=== PATIENT | male | born 1940 | race Caucasian/White ===

== ENCOUNTER 2016-08-14 11:15 | Day surgery (SDC) | payer MEDICARE, OTHER ==
[~2016-08-14] VITALS: Ht 175.3 cm; Wt 65.9 kg
[~2016-08-14 11:15] MED LIST: ATIVAN0.5 MG PO; BAYER CHEWABLE81 MG PO; FLORANEX / LACT1 TAB PO; LANOXIN250 MCG PO; LEVAQUIN500 MG PO; NAMENDA5 MG PO; XANAX0.5 MG PO
[2016-08-14] MEDS ORDERED: ARICEPT5 MG PO (12:14)
[2016-08-14 12:27] LABS: ANION GAP 13.6 mmol/L (8-16); CARBON DIOXIDE 28.3 mmol/L (21.0-32.0); CREATININE - SERUM 1.5 mg/dL (0.6-1.3); POTASSIUM - SERUM 3.9 mmol/L (3.5-5.1)
[2016-08-14 12:30] VITALS: BP 142/90; Ht 175.3 cm; Wt 65.9 kg
--- NOTE | 2016-08-14 12:45 | NUR ---
1235-SPOKE WITH DR NICHOLSON AND AN ORDER RECEIVED FOR 10MG OF VALIUM PO IF PATIENT WOULD LIKE TO HAVE IT PRIOR TO PROCEDURE. EXPLAINED TO PATIENT THAT THERE IS SOMETHING TO HELP HIM RELAX IF HE WANTED IT, PT DOES NOT WANT AT THIS TIME. DAUGHTER AT BEDSIDE AND STATED UNDERSTANDING IF PT CHANGES HIS MIND THERE IS VALIUM AVAIBLE
[2016-08-14 12:49] LABS: BASOPHILS 0.4 % (0.0-2.0); EOSINOPHILS 2.7 % (0-7); HEMATOCRIT 41.9 % (42.0-54.0); HEMOGLOBIN 14.4 g/dL (13.5-17.5); IMMATURE GRANULOCYTES 0.2 % (0-5); LYMPHOCYTES 11.3 % (15-50); MCH 33.9 pg (26.0-34.0); MCHC 34.4 g/dL (31.0-37.0); MCV 98.6 fL (80.0-100.0); MEAN PLATELET VOLUME 11.6 fL (7.4-10.4); MONOCYTES 9.2 % (2-11); NEUTROPHILS 76.2 % (40-80); PLATELET COUNT 204 10x3/uL (130-400); RBC 4.25 10x6/uL (4.20-6.10); RDW 12.7 % (11.5-14.5); WBC 9.8 10x3/uL (4.8-10.8)
--- NOTE | 2016-08-14 19:03 | NUR ---
1830 IV DC WITH CATHER TIP INTACT
--- NOTE | 2016-08-21 12:04 | OP ---
PATIENT NAME: ELODIA AWAN MEDICAL RECORD: [id number] :42 LOCATION:[facility] ADMISSION DATE: SURGEON: DEAN MCGOVERN DO DATE OF OPERATION: 08/14/2016 PROCEDURE: Colonoscopy. INDICATION: Constipation and hematochezia. MEDICATIONS: Propofol 380 mg IV per anesthesia. FINDINGS: Informed consent was given. The patient was made comfortable with the above medication. After reaching an adequate level of sedation by slow IV push, the patient was placed in his left side. The endoscope was then advanced under direct visualization through the rectum to the cecum, evidenced by the cecal folds, appendiceal orifice and ileocecal valve. The prep was fair and withdrawal time was greater than 15 minutes. In total, there were 4 polyps. These ranged in size from 3 mm to 6 mm. All polyps were sessile and removed with cold forceps. There were 2 polyps in the transverse colon, 1 polyp in the descending colon, and 1 in the sigmoid colon. There was no evidence of diverticula and there were no hemorrhoids visualized internally. There were no other findings to explain the intermittent bleeding. The remainder of the examination revealed normal mucosa. The scope was withdrawn from the patient. Once the procedure was complete, the patient tolerated the procedure well and there were no complications. ESTIMATED BLOOD LOSS: Less than 3 cc. IMPRESSION: Colon polyps located in the transverse colon, descending colon, and sigmoid colon. There were 4 polyps removed in total by cold forceps. PLAN AND RECOMMENDATIONS: 1. Discharge to home when recovery parameters are met. 2. Continue current medications. 3. Recommend maintaining good fiber in the diet and supplementing the diet with 1-2 tablespoons of fiber daily. 4. Continue MiraLax 1 capful daily to maintain regular bowel movements. 5. If this is not improving Mr. Awan's bowel movements, consideration could be given to trying Linzess or Amitiza. 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
== END 2016-08-14 11:16 | disposition home or self-care (01) ==
LOC: D.OPS 11:15
PROVIDERS: Anesthesiology
DX: D12.4 Benign neoplasm of descending colon (principal); D12.3 Benign neoplasm of transverse colon; D12.5 Benign neoplasm of sigmoid colon; K63.89 Other specified diseases of intestine; K59.00 Constipation, unspecified

== ENCOUNTER 2017-02-27 15:10 | Emergency (ER) | payer MEDICARE, OTHER ==
[2016-08-14 12:30] VITALS: BMI 21.4
[~2017-02-27 15:10] MED LIST changes: +ARICEPT5 MG PO
[2017-02-27 16:21] LABS: ALBUMIN 3.6 g/dL (3.4-5.0); BILIRUBIN - TOTAL 0.47 mg/dL (0.2-1.3); CALCIUM 9.1 mg/dL (8.5-10.1); CARBON DIOXIDE 27.4 mmol/L (21.0-32.0); CREATININE - SERUM 1.5 mg/dL (0.6-1.3); POTASSIUM - SERUM 4.4 mmol/L (3.5-5.1)
[2017-02-27 16:40] LABS: BASOPHILS 0.6 % (0-2); EOSINOPHILS 3.1 % (0-7); HEMATOCRIT 40.6 % (42.0-54.0); HEMOGLOBIN 13.9 g/dL (13.5-17.5); IMMATURE GRANULOCYTES 0.1 % (0-5); LYMPHOCYTES 18.8 % (15-50); MCH 33.3 pg (26.0-34.0); MCHC 34.2 g/dL (31.0-37.0); MCV 97.4 fL (80.0-100.0); MEAN PLATELET VOLUME 12.2 fL (7.4-10.4); MONOCYTES 10.3 % (2-11); NEUTROPHILS 67.1 % (40-80); PLATELET COUNT 165 10x3/uL (130-400); RBC 4.17 10x6/uL (4.20-6.10); RDW 13.1 % (11.5-14.5); WBC 8.3 10x3/uL (4.8-10.8)
[2017-02-27 16:44] LABS: APPEARANCE CLEAR (CLEAR); BILIRUBIN NEGATIVE (NEGATIVE); COLOR YELLOW (YELLOW); GLUCOSE NEGATIVE (NEGATIVE); KETONE NEGATIVE (NEGATIVE); NITRITE NEGATIVE (NEGATIVE); PROTEIN NEGATIVE (NEGATIVE); UROBILINOGEN NORMAL (NORMAL)
[2017-02-27 16:48] LABS: UDS - AMPHET NEGATIVE QUAL (NEGATIVE); UDS - BARB NEGATIVE QUAL (NEGATIVE); UDS - BENZO NEGATIVE QUAL (NEGATIVE); UDS - COCAINE NEGATIVE QUAL (NEGATIVE); UDS - OPIATE NEGATIVE QUAL (NEGATIVE); UDS - PCP NEGATIVE QUAL (NEGATIVE); UDS - THC NEGATIVE QUAL (NEGATIVE)
[2017-02-27 16:49] LABS: BACTERIA FEW /hpf (NONE SEEN); RED CELLS - URINE 25-50 /hpf (0-5); WHITE CELLS - URINE 0-5 /hpf (0-5)
[2017-02-27 16:50] LABS: HYALINE CAST 0-5 /lpf (NONE SEEN)
== END 2017-02-27 17:46 | disposition home or self-care (01) ==
LOC: D.ER 15:10
PROVIDERS: Emergency Medicine
DX: R41.82 Altered mental status, unspecified (principal); G30.9 Alzheimer's disease, unspecified; F02.80 Dementia in other diseases classified elsewhere, unspecified severity, without behavioral disturbance, psychotic disturbance, mood disturbance, and anxiety; F17.200 Nicotine dependence, unspecified, uncomplicated; I48.91 Unspecified atrial fibrillation

== ENCOUNTER 2017-10-18 19:10 | Emergency (ER) | payer MEDICARE, OTHER ==
[2016-08-14 12:30] VITALS: BMI 21.4
[2017-10-18 20:54] LABS: BASOPHILS 0.5 % (0-2); EOSINOPHILS 6.4 % (0-7); HEMATOCRIT 34.6 % (42.0-54.0); HEMOGLOBIN 11.4 g/dL (13.5-17.5); IMMATURE GRANULOCYTES 0.1 % (0-5); MCH 33.6 pg (26.0-34.0); MCHC 32.9 g/dL (31.0-37.0); MCV 102.1 fL (80.0-100.0); MONOCYTES 12.7 % (2-11); NEUTROPHILS 64.3 % (40-80); PLATELET COUNT 165 10x3/uL (130-400); RBC 3.39 10x6/uL (4.20-6.10); WBC 8.4 10x3/uL (4.8-10.8)
[2017-10-18 21:15] LABS: ALBUMIN 3.7 g/dL (3.4-5.0); ANION GAP 9.9 mmol/L (8-16); BILIRUBIN - TOTAL 0.25 mg/dL (0.2-1.3); CALCIUM 9.1 mg/dL (8.5-10.1); CARBON DIOXIDE 32.6 mmol/L (21.0-32.0); CREATININE - SERUM 1.5 mg/dL (0.6-1.3); POTASSIUM - SERUM 3.5 mmol/L (3.5-5.1); PROTEIN - SERUM 7.4 g/dL (6.4-8.2)
[2017-10-18 21:19] LABS: DIGOXIN 0.02 ng/mL (0.90-2.00)
== END 2017-10-18 22:18 | disposition other institution (70) ==
LOC: D.ER 19:10
PROVIDERS: Physician Assistant
DX: S01.01XA Laceration without foreign body of scalp, initial encounter (principal); W18.31XA Fall on same level due to stepping on an object, initial encounter; Y93.89 Activity, other specified; Y92.129 Unspecified place in nursing home as the place of occurrence of the external cause; F03.90 Unspecified dementia, unspecified severity, without behavioral disturbance, psychotic disturbance, mood disturbance, and anxiety; G30.9 Alzheimer's disease, unspecified; F02.80 Dementia in other diseases classified elsewhere, unspecified severity, without behavioral disturbance, psychotic disturbance, mood disturbance, and anxiety